=== PATIENT | female | born 2000 | race Two or more races ===

== ENCOUNTER 2021-03-05 17:34 | Emergency (ER) | payer OTHER ==
[~2021-03-05] VITALS: Ht 152.4 cm; Wt 51.3 kg
[2021-03-05] MEDS ORDERED: ACETAMINOPHEN 325 MG TAB PO ONE (18:30)
[2021-03-05 21:15] VITALS: BP 118/73
== END 2021-03-05 21:38 | disposition home or self-care (01) ==
LOC: ER 17:34
DX: I82.4Z2 Acute embolism and thrombosis of unspecified deep veins of left distal lower extremity (principal); Z86.2 Personal history of diseases of the blood and blood-forming organs and certain disorders involving the immune mechanism
CPT/HCPCS: 93971

== ENCOUNTER 2023-06-02 18:38 | Inpatient (IN) | payer OTHER ==
[~2023-06-02] VITALS: Ht 152.4 cm; Wt 62.2 kg
[2023-06-02 19:45] LABS: Eosinophils # (auto) 0.1 10 ^3/uL (0-0.8); Lymphocytes # (auto) 2.3 10 ^3/uL (0.4-5.4); Mean Corpuscular Hgb Conc. 29.8 g/dL (32.0-36.0)
[2023-06-02 19:48] LABS: Basophils # (auto) 0 10 ^3/uL (0-0.2); Basophils % (auto) 0.4 % (0.0-2.0); Eosinophils % (auto) 1.2 % (0.0-7.0); Hemoglobin 8.9 g/dL (12.2-16.2); Mean Corpuscular Hemoglobin 19.7 pg (28.0-32.0); Mean Corpuscular Volume 66.3 fL (80.0-100.0); Monocytes # (auto) 1.1 10 ^3/uL (0-1.3); Monocytes % (auto) 10.1 % (0.0-12.0); Neutrophils # (auto) 7.4 10 ^3/uL (1.6-8.6); Neutrophils % (auto) 67.3 % (37.0-80.0); Red Blood Cells 4.52 10^6/uL (4.0-5.20); Red Cell Distribution Width 17.4 % (11.8-14.3)
[2023-06-02 20:15] LABS: Alanine Aminotransferase 14 U/L (7-40); Albumin 4.5 g/dL (3.2-4.8); Alkaline Phosphatase 99 U/L (46-116); Anion Gap 8 (5-15); Aspartate Aminotransferase 20 U/L (13-40); BUN/Creatinine Ratio 12.1 (10.0-20.0); Bilirubin, Total 0.5 mg/dL (0.2-1.0); Blood Urea Nitrogen 8 mg/dL (9-23); Calcium 9.2 mg/dL (8.7-10.4); Carbon Dioxide 25 mmol/L (20-30); Chloride 105 mmol/L (98-107); Glucose 94 mg/dL (74-106); Potassium 4.1 mmol/L (3.5-5.1); Sodium 138 mmol/L (136-145); Total Protein 7.5 g/dL (5.7-8.2)
[2023-06-02 20:26] LABS: Urine Bacteria NONE SEEN /hpf (None Seen); Urine Blood 2+ /uL (Negative); Urine Clarity Clear (Clear); Urine Color Yellow (Yellow); Urine Mucus FEW (None Seen); Urine Protein, UAD Negative (Negative); Urine Specific Gravity 1.015 (1.001-1.035); Urine Urobilinogen Normal (Negative); Urine WBC 2 /hpf (0 - 5); Urine pH 6.5 (5.0-8.0)
[2023-06-02 20:49] LABS: Anisocytosis Slight; Hypochromia Marked; Platelet Estimate Adequate
[2023-06-03] MEDS ORDERED: ONDANSETRON HCL 4 MG/2 ML VIAL IV ONE (00:30)
[2023-06-03] MEDS ORDERED: MORPHINE SULFATE 4 MG/ML SYR/VIAL IV ONE (00:30)
[2023-06-03] MEDS ORDERED: IOHEXOL 350 MG/ML 100ML IJ ONE (00:42)
[2023-06-03] MEDS ORDERED: ONDANSETRON HCL 4 MG/2 ML VIAL IV PRN (08:00)
[2023-06-03] MEDS ORDERED: MORPHINE SULFATE INJ 2 MG/ml SYRG IV PRN (08:00)
[2023-06-03] MEDS ORDERED: NITROGLYCERIN 0.4 MG SL TAB SL PRN (08:00)
[2023-06-03] MEDS ORDERED: ADENOSINE 50 MG in GIVE UN-DILUTED 0 ML IV ONE (08:45)
[2023-06-03] MEDS: PANTOPRAZOLE 40 MG/10 ML VIAL INJ IV SCH (10:00)
[2023-06-03] MEDS: APIXABAN 5 MG TAB PO SCH ×2 (14:58→23:31)
[2023-06-03] MEDS: HYDROcodone-ACET 5/325MG TAB PO PRN ×2 (14:58→20:56)
[2023-06-03 17:44] VITALS: PULSE 71; RESP 17; O2SAT 100
[2023-06-03 20:00] VITALS: PULSE 94; RESP 18; O2SAT 98
[2023-06-03 21:10] VITALS: PULSE 94; RESP 18; O2SAT 98
[2023-06-03 22:39] LABS: % Iron Saturation 4.6 % (15-50)
[2023-06-04 05:00] VITALS: BP 107/58; PULSE 91; RESP 14; TEMP 98.1; O2SAT 97
[2023-06-04 08:00] VITALS: PULSE 85; PULSE 89; RESP 16
[2023-06-04] MEDS: MORPHINE SULFATE INJ 2 MG/ml SYRG IV PRN ×2 (08:07→15:02)
[2023-06-04 09:00] VITALS: BP_SYST 107; BP_SYST 97; BP_DIAS 52; BP_DIAS 56; PULSE 85; PULSE 88; RESP 16; RESP 17; TEMP 98.2; TEMP 98.3; O2SAT 98
[2023-06-04] MEDS: APIXABAN 5 MG TAB PO SCH ×2 (09:19→21:17)
[2023-06-04] MEDS: PANTOPRAZOLE 40 MG/10 ML VIAL INJ IV SCH (09:19)
[2023-06-04 17:00] VITALS: BP 104/53; PULSE 106; RESP 18; TEMP 98; O2SAT 98
[2023-06-04 20:00] VITALS: PULSE 113; RESP 16
[2023-06-04] MEDS: HYDROcodone-ACET 5/325MG TAB PO PRN (20:04)
[2023-06-04 22:00] VITALS: BP 108/54; PULSE 113; RESP 16; TEMP 99.1; O2SAT 98
[2023-06-05] VITALS (7 sets, daily range): BP systolic 101–116; BP diastolic 57–71; PULSE 86–100; RESP 14–18; TEMP 97.6–98.5; O2SAT 92–98
[2023-06-05] MEDS: APIXABAN 5 MG TAB PO SCH ×2 (08:43→21:03)
[2023-06-05] MEDS: PANTOPRAZOLE 40 MG/10 ML VIAL INJ IV SCH (08:43)
[2023-06-05] MEDS ORDERED: IRON SUCROSE COMPLEX 200 MG in SODIUM CHL 0.9% 100 ML IV SCH (12:00)
[2023-06-05] MEDS: SODIUM FERR GLUC 62.5MG/5ML 125 MG in SODIUM CHL 0.9% 100 ML IV SCH (12:53)
[2023-06-05] MEDS ORDERED: DOCUSATE SOD 100 MG CAP PO ONE (20:15)
[2023-06-05] MEDS ORDERED: MILK OF MAGNESIA 30ML SUSP PO ONE (20:15)
[2023-06-05] MEDS ORDERED: DOCUSATE SOD 100 MG CAP PO SCH (22:00)
[2023-06-06] VITALS (9 sets, daily range): BP systolic 93–101; BP diastolic 46–62; PULSE 74–84; RESP 16–18; TEMP 36.9; O2SAT 96–98
[2023-06-06] MEDS: DOCUSATE SOD 100 MG CAP PO SCH ×2 (08:33→21:25)
[2023-06-06] MEDS: PANTOPRAZOLE 40 MG/10 ML VIAL INJ IV SCH (08:33)
[2023-06-06] MEDS: APIXABAN 5 MG TAB PO SCH ×2 (08:33→21:25)
[2023-06-06] MEDS: SODIUM FERR GLUC 62.5MG/5ML 125 MG in SODIUM CHL 0.9% 100 ML IV SCH (12:30)
[2023-06-07] VITALS (7 sets, daily range): BP systolic 101–108; BP diastolic 50–76; PULSE 67–93; RESP 18–21; TEMP 97.6–98; O2SAT 98–100
[2023-06-07] MEDS: PANTOPRAZOLE 40 MG/10 ML VIAL INJ IV SCH (11:29)
[2023-06-07] MEDS: DOCUSATE SOD 100 MG CAP PO SCH ×2 (11:29→21:38)
[2023-06-07] MEDS: APIXABAN 5 MG TAB PO SCH ×2 (11:29→21:38)
[2023-06-07] MEDS: SODIUM FERR GLUC 62.5MG/5ML 125 MG in SODIUM CHL 0.9% 100 ML IV SCH (12:30)
[2023-06-08] VITALS (7 sets, daily range): BP systolic 95–106; BP diastolic 46–61; PULSE 69–82; RESP 17–20; TEMP 97.4–98.7; O2SAT 92–99
[2023-06-08] MEDS: APIXABAN 5 MG TAB PO SCH ×2 (09:37→21:07)
[2023-06-08] MEDS: PANTOPRAZOLE 40 MG/10 ML VIAL INJ IV SCH (09:37)
[2023-06-08] MEDS: DOCUSATE SOD 100 MG CAP PO SCH ×2 (09:38→21:07)
[2023-06-08] MEDS: SODIUM FERR GLUC 62.5MG/5ML 125 MG in SODIUM CHL 0.9% 100 ML IV SCH (13:08)
[2023-06-09 05:28] VITALS: BP 96/59; PULSE 84; RESP 18; TEMP 97.9; O2SAT 98
[2023-06-09 08:00] VITALS: PULSE 61
[2023-06-09 08:15] VITALS: BP 104/58; PULSE 74; RESP 18; TEMP 97.8; O2SAT 98
[2023-06-09] MEDS: PANTOPRAZOLE 40 MG/10 ML VIAL INJ IV SCH (09:18)
[2023-06-09] MEDS: APIXABAN 5 MG TAB PO SCH (09:19)
[2023-06-09] MEDS: DOCUSATE SOD 100 MG CAP PO SCH (10:00)
[2023-06-09 12:10] VITALS: BP 103/71; PULSE 73; RESP 16; TEMP 97.9; O2SAT 98
[2023-06-09] MEDS: SODIUM FERR GLUC 62.5MG/5ML 125 MG in SODIUM CHL 0.9% 100 ML IV SCH (12:46)
[2023-06-09] MEDS ORDERED: APIX5TAB PO (13:18)
[2023-06-09 14:01] VITALS: BP 103/71; PULSE 73; RESP 16; TEMP 97.9; O2SAT 98
== END 2023-06-09 15:30 | DRG 301 ==
LOC: EEVIPCON 18:38 → EDBD 18:38 → ER 18:38 → TELE 06-03 08:01 → TELE-CENTR 06-03 23:45
PROVIDERS: ADMIT Specialist; ATTEND Internal Medicine
DX: I82.412 Acute embolism and thrombosis of left femoral vein (principal); K59.00 Constipation, unspecified; D50.9 Iron deficiency anemia, unspecified; I82.432 Acute embolism and thrombosis of left popliteal vein; I82.442 Acute embolism and thrombosis of left tibial vein; Z86.718 Personal history of other venous thrombosis and embolism
CPT/HCPCS: 36415; 71045; 71275; 76856; 78452; 80053; 81001; 83540; 83550; 83880; 84484; 85025; 85379; 93005; 93017; 93306; 93971; C9113; G0378; J0153; J1756; J2405